=== PATIENT | male | born 1980 | race Caucasian/White ===

== ENCOUNTER 2024-07-30 08:28 | Day surgery (SDC) | payer OTHER ==
[2024-07-30 08:42] VITALS: PULSE 78; RESP 12; TEMP 97.8
[2024-07-30 10:08] VITALS: BP 145/92
--- NOTE | 2024-07-30 10:34 | US ---
EXAMINATION TYPE: US FNA thyroid first lesion DATE OF EXAM: 07/30/2024 10:22 AM COMPARISON: None CLINICAL INDICATION:Male, 44 years old with history of E04.1 NONTOXIC SINGLE THYROID NODULE; , ATTENDING: Dr. Evelio rGier PROCEDURE: Informed consent was obtained. The risks and benefits of the procedure were discussed with the patien t. The site was marked. Timeout procedure was performed Ultrasound imaging demonstrates right thyroid nodule. The patient was prepped, draped in the usual sterile fashion, and locally anesthetized with 1% lidoca ine. Five fine needle aspiration were then performed with a 25 gauge needle. Samples were sent to [facility] pathology department for further analysis. Patient tolerated the procedure without incident and wa s sent home in stable condition. IMPRESSION: Successful ultrasound guided fine needle aspiration [facility] Collin Zabala, , 07/30/2024 10:32 AM
== END 2024-07-30 09:45 | disposition home or self-care (01) ==
LOC: RADPROMAIN 08:28
PROVIDERS: ATTEND Family Medicine
DX: E04.1 Nontoxic single thyroid nodule (principal)
CPT/HCPCS: 10005; 88173; 88305